=== PATIENT | male | born 1990 | race African-American/Black ===

== ENCOUNTER 2021-07-12 11:00 | Emergency (ER) | payer OTHER, SELFPAY ==
[2021-07-12 11:08] VITALS: BP 152/90; PULSE 89; RESP 20; TEMP 36.8; O2SAT 100
[2021-07-12 11:15] VITALS: BP 152/90; PULSE 89; RESP 20; TEMP 36.8; O2SAT 100
--- NOTE | 2021-07-12 11:17 | ED.SKABFB ---
HPI - Skin/Abscess/Foreign Bdy General Chief complaint: Skin/Abscess/Foreign Body Stated complaint: poison deandre Time Seen by Provider: 07/12/21 11:17 Source: patient and RN notes reviewed Mode of arrival: ambulatory Limitations: no limitations History of Present Illness HPI narrative: 30-year-old male presents with concern for possible poisoning. 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 He denies swollen lips, swollen tongue, nausea, diarrhea, vomiting, trouble breathing. Reports he has been trying [id number] remedies with no relief. MD complaint: rash Related Data Home Medications Medication Instructions Recorded Confirmed lamotrigine [Lamictal] 200 mg PO BID 07/12/21 07/12/21 Allergies Allergy/AdvReac Type Severity Reaction Status Date / Time No Known Allergies Allergy Verified 07/12/21 11:12 Review of Systems Review of Systems: CONSTITUTIONAL: Denies malaise, chills, sweats, or fever. EYES: Denies visual changes, redness, or discharge. ENT: Denies swollen lips, swollen tongue CARDIOVASCULAR: Denies chest pain, palpitations, or edema. RESPIRATORY: Denies cough or dyspnea. GASTROINTESTINAL: Denies abdominal pain, nausea, vomiting, diarrhea SKIN: Reports itchy rash on arms, face, genitals MUSCULOSKELETAL: Denies myalgia. All systems reviewed & are unremarkable except as noted in HPI and below PMFSH Comments At time of signature, agree with nursing past medical, surgical, social and family history. There is no relevant family history pertinent to the presenting complaint Exam Narrative: GENERAL: Well-appearing, well-nourished, and in no acute distress. HEAD: Normocephalic, atraumatic. EYES: PERRLA, conjunctivae clear, and EOMI. ENT: Mucous membranes moist. Oropharynx without edema, erythema or lesions. NECK: Supple. No lymphadenopathy CHEST: Clear to auscultation. No respiratory distress. HEART: Regular rate and rhythm. SKIN: Warm, dry. Patches of erythema and papules noted to bilateral arms, forehead NEURO: Alert and oriented x3. PSYCH: Normal mood and affect Course Course Emergency Course: Patient is aware of diagnosis, understands and agrees to treatment plan. Anticipatory guidance given. Patient agrees to follow-up as directed and is aware of reasons to seek care at the emergency department. Portions of this record may have been created with voice recognition software Vital Signs Vital signs: Vital Signs Temperature 98.3 F 07/12/21 11:08 Pulse Rate 89 07/12/21 11:08 Respiratory Rate 20 07/12/21 11:08 Blood Pressure 152/90 H 07/12/21 11:08 Pulse Oximetry 100 07/12/21 11:08 Temperature 98.3 F 07/12/21 11:15 Pulse Rate 89 07/12/21 11:15 Respiratory Rate 20 07/12/21 11:15 Blood Pressure 152/90 H 07/12/21 11:15 Pulse Oximetry 100 07/12/21 11:15 Reviewed. MDM - Skin/Abscess/Foreign Bdy MDM Narrative Medical decision making narrative: Does not appear at this time to be erythema multiforme, bullous, SJS, TEN; no evidence at this time to suggest RMSF, endocarditis or Lyme disease; patient looks well, nontoxic and is tolerating oral intake; no neurologic signs or symptoms; no headache, photophobia or neck pain; afebrile; appropriate for initial outpatient treatment; discussed the importance of follow-up, patient agrees; question, viral exanthema, contact dermatitis, allergic dermatitis, eczema, urticaria. No soft palate or uvula edema, no tongue, lip edema or other mucosal involvement, no respiratory compromise, no stridor, no wheezing, no wheezing, no history of syncope, no hypotension, no nausea, vomiting, or diarrhea. Instructed patient to go to nearest ER immediately for any worsening symptoms including but not limited to: fever, spreading rash, pain, sore throat, headache, dizziness, chest pain, trouble breathing, or any symptoms concerning to the patient. Critical Care Time Critical Care Time Marcella
== END 2021-07-12 11:33 | disposition home or self-care (01) ==
PROVIDERS: Emergency Provider Nurse Practitioner; PCP Nurse Practitioner Family
DX: L24.7 Irritant contact dermatitis due to plants, except food (principal)
CPT/HCPCS: 99213; G0463

== ENCOUNTER 2021-08-19 09:05 | Emergency (ER) | payer OTHER, SELFPAY ==
--- NOTE | ~2021-08-19 | XR_ITS ---
XR forearm RT 2V 08/19/2021 09:20 INDICATION: Right arm pain PROCEDURE: 2 views right forearm COMPARISON: No prior studies for comparison. FINDINGS: Fracture, dislocation or subluxation is not identified. The soft tissues appear within norm al limits. No foreign bodies are identified. IMPRESSION: 1: NO ACUTE BONE OR JOINT ABNORMALITY IDENTIFIED. Reviewed, dictated and finalized at location B.
[2021-08-19 09:15] VITALS: BP 137/91; PULSE 88; RESP 18; TEMP 37.1; O2SAT 100
--- NOTE | 2021-08-19 09:22 | ED.UPPEXIN ---
HPI - Extremity Injury (Upper) General Chief Complaint: Extremity Injury, Lower Stated Complaint: right forearm injury Time Seen by Provider: 08/19/21 09:22 Source: patient History of Present Illness HPI narrative: PATIENT PRESENTS WITH RIGHT FOREARM PAIN. PATIENT STATES HE DROPPED A SLEDGE HAMMER ON HIS FOREARM EARLIER TODAY. PAIN WITH ROM. MODERATE SWELLING. NO DEFORMITY NOTED NO NUMBNESS OR TINGLING. complaint: injury to: right and forearm Related Data Home Medications Medication Instructions Recorded Confirmed lamotrigine [Lamictal] 200 mg PO BID 07/12/21 08/19/21 Allergies Allergy/AdvReac Type Severity Reaction Status Date / Time No Known Allergies Allergy Verified 07/12/21 11:12 Review of Systems Review of Systems: CONSTITUTIONAL: Denies fever, chills, or sweats. EYES: Denies visual changes, redness, or discharge. ENT: Denies rhinorrhea, congestion, sore throat, or otalgia. CARDIOVASCULAR: Denies chest pain, palpitations, or edema. RESPIRATORY: Denies cough or dyspnea. GASTROINTESTINAL: Denies abdominal pain, nausea, vomiting, or diarrhea. GENITOURINARY: Denies dysuria or hematuria. SKIN: Denies rash or itching. MUSCULOSKELETAL: Denies back pain, joint pain, or myalgia. NEUROLOGIC: Denies headache, numbness, or weakness. PSYCHIATRIC: Denies anxiety or depression. PMFSH Comments At time of signature, agree with nursing past medical, surgical, social and family history. There is no relevant family history pertinent to the presenting complaint Exam Narrative: GENERAL: Well-appearing, well-nourished, and in no acute distress. HEAD: Normocephalic, atraumatic. EYES: PERRLA and EOMI. ENT: Nares clear, no rhinorrhea or epistaxis. Mucous membranes moist. NECK: Supple. CHEST: Clear to auscultation. No respiratory distress. HEART: Regular rate and rhythm. No murmur heard. Normal peripheral pulses. ABDOMEN: Soft, nontender, nondistended, normal active bowel sounds. EXTREMITIES: Normal range of motion. No edema. SKIN: Warm, dry, no rash. NEURO: No focal deficits. Alert and oriented x3. Nikolay Coma Scale Eye Opening: Spontaneous 4 [place] Coma Scale Motor: Obeys Commands 6 GENERAL: Well-appearing, well-nourished, and in no acute distress. HEAD: Normocephalic, atraumatic. EYES: PERRLA and EOMI. ENT: Nares clear, no rhinorrhea or epistaxis. Mucous membranes moist. NECK: Supple. CHEST: Clear to auscultation. No respiratory distress. HEART: Regular rate and rhythm. No murmur heard. Normal peripheral pulses. ABDOMEN: Soft, nontender, nondistended, normal active bowel sounds. EXTREMITIES: Normal range of motion. MILD EDEMA TO WRIST HAND EXAM - Skin intact, no laceration, no swelling, no erythema, normal digit cascade with flexion of fingers, median nerve, ulnar nerve, radial nerve is intact. Normal sensation of each side of each finger, can perform `ok? sign, `cross over finger test of index and middle fingers? and `thumbs up? sign, normal thumb opposition, no scissoring. good capillary refill and radial pulse. normal flexion and extension of fingers and wrist. normal supination at wrist. Normal forearm and elbow exam. SKIN: Warm, dry, no rash. NEURO: No focal deficits. Alert and oriented x3. Nikolay Coma Scale Eye Opening: Spontaneous 4 [place] Coma Scale Motor: Obeys Commands 6 [place] Coma Scale Verbal: Oriented 5 [place] Coma Scale Total 15 Course Vital Signs Vital signs: Vital Signs Temperature 37.1 C 08/19/21 09:15 Pulse Rate 88 08/19/21 09:15 Respiratory Rate 18 08/19/21 09:15 Blood Pressure 137/91 H 08/19/21 09:15 Pulse Oximetry 100 08/19/21 09:15 Temperature 37.1 C 08/19/21 09:15 Pulse Rate 88 08/19/21 09:15 Respiratory Rate 18 08/19/21 09:15 Blood Pressure 137/91 H 08/19/21 09:15 Pulse Oximetry 100 08/19/21 09:15 Addressed elevated BP today. Today's blood pressure higher than recommended range. Discussed importance of follow -up with PCP and possible intermodal dispatcher e
== END 2021-08-19 09:49 | disposition home or self-care (01) ==
PROVIDERS: Emergency Provider Nurse Practitioner Family; PCP Nurse Practitioner Family
DX: S50.11XA Contusion of right forearm, initial encounter (principal); W20.8XXA Other cause of strike by thrown, projected or falling object, initial encounter; F31.9 Bipolar disorder, unspecified
CPT/HCPCS: 73090; 99213; A4565; G0463